=== PATIENT | male | born 1935 | race Caucasian/White ===

== ENCOUNTER 2019-02-01 18:50 | Observation (INO) ==
[2019-02-01 20:09] LABS: BASO# 0.03 X1000 (0.0-0.2); BASO% 0.3 % (0.0-0.8); EOS# 0.01 X1000 (0.0-0.7); EOS% 0.1 % (0.0-10.0); HEMATOCRIT 33.6 % (42.0-52.0); HEMOGLOBIN 11.3 g/dL (14.0-18.0); IMM GRAN# 0.02 X1000 (0.0-0.04); IMM GRAN% 0.2 % (0.0-0.5); LYMPH# 1.19 X1000 (1.2-3.4); LYMPH% 13.7 % (20.5-51.1); MCH 30.5 PG (27-31); MCHC 33.6 g/dL (33-37); MCV 90.6 FL (81-99); MONO# 0.86 X1000 (0.11-0.59); MONO% 9.9 % (1.7-9.3); MPV 8.6 FL (7.4-10.4); NEUT# 6.59 X1000 (1.4-6.5); NEUT% 75.8 % (42.2-75.2); PLT 337 X1000 (130-400); RBC 3.71 XMIL (4.7-6.1); RDW 11.9 % (11.5-14.5)
--- NOTE | 2019-02-01 20:21 | PROVIDER DOCUMENTATION ---
HPI-General Adult - General Chief Complaint: Return/Recheck Stated Complaint: LOW BLOOD SUGAR Time Seen by Provider: 02/01/19 20:15 Source: patient Allergies/Adverse Reactions: Patient Allergies Allergy/AdvReac Type Severity Reaction Status Date / Time No Known Allergies Allergy Verified 01/30/19 16:24 - History of Present Illness -Gen Adult Nature of Presenting Problems: PER FAMILY: 83 YOM PRESENTS WITH GENERALIZED WEAKNESS THAT HAS NOT IMPROVED SIN CE BEING SEEN ON MONDAY FOR HYPOGLYCEMIA. THE SON/ REPORT SOME SLURRED SPEECH ON MONDAY AND "MAYBE AGAIN THIS MORNING" THE PATIENT HAD A FALL THIS AM BUT WAS ASSISTED TO THE GROUND BY HIS . SON REPORTS THE PATIENT IS NOT EATING OR DRINKING WELL AT HOME. THE PATIENT HOWEVER DENIES ALL COMPLAINTS EXCEPT GENERALIZED WEAKNESS. Review of Systems - Adult - REVIEW OF SYSTEMS - ADULT Constitutional: reports: pierre. denies: no symptoms reported, see HPI, chills, fever, night sweats, weight gain, weight loss, other Eyes: reports: no symptoms reported. denies: see HPI, discharge, dry eyes, decr eased vision, blurred vision, double vision, eye pain, redness, other Ears, Nose, Mouth & Throat: reports: no symptoms reported. denies: see HPI, ear discharge, ear pain, hearing loss, tinnitus, epistaxis, sinus problem, nose pain, loose teeth, mouth/dental pain, mouth swelling, hoarseness, throat pain, throat swelling, other Cardiovascular: reports: no symptoms reported. denies: see HPI, chest pain, edema, heart murmur, irregular heart rate, orthopnea, palpitations, poor circulation, PND, syncope, other Respiratory: reports: no symptoms reported. denies: see HPI, chronic cough, cough, dyspnea on exertion, excessive sputum production, hemoptysis, pleurisy, shortness of breath, wheezing, other Gastrointestinal: reports: poor appetite. denies: no symptoms reported, see HPI, abdominal pain, hematemesis, constipation, diarrhea, difficulty swallowing, frequent heartburn, nausea, rectal bleeding, vomiting, other Genitourinary: reports: no symptoms reported. denies: see HPI, dysuria, discharge, frequency, flank pain, frequent UTI's, hematuria, hesitency, incont inence, urinary retention, urgency, other Musculoskeletal: reports: no symptoms reported. denies: see HPI, bone pain, back pain, frequent leg cramps, joint pain, joint swelling, muscle aches, muscle weakness, neck pain, other Integumentary: reports: no symptoms reported. denies: see HPI, hives, hair loss, itching, mole changes, nail changes, rash, skin sores/ulcer, skin thickening, other Neurological: reports: no symptoms reported. denies: see HPI, ataxia, dizziness/vertigo, headache/migraines, loss of balance, numbness, paresthesia, seizure, slurred speech, syncope, tremors, other Psychiatric: reports: no symptoms reported. denies: see HPI, anxiety, anti- depressant use, alcohol/drug dependence, depression, emotional problems, insomnia, panic attacks, suicidal thoughts, other Endocrine: reports: no symptoms reported. denies: see HPI, change in skin pigment, excessive sweating, goiter, cold intolerance, heat intolerance, increased hunger, increased thirst, polyuria, other Hematologic/Lymphatic: reports: no symptoms reported. denies: see HPI, blood clots, easy bruising, low blood count, lymphedema, prolonged bleeding, swollen lymph nodes, transfusions, other Allergic/Immunologic: reports: no symptoms reported. denies: see HPI, allergic reactions, allergic rhinitis, asthma, eczema, food allergy, frequent infections, hay fever, hives, positive PPD, urticaria, other Past History - Adult - PAST MEDICAL HISTORY-ADULT Review of Records: reports: Old Records Reviewed, Nursing Assessment Review Physical Exam-General - PHYSICAL EXAM-ADULT Initial Vital Signs Reviewed: Yes - CONSTITUTIONAL General Appearance: appears well, alert, no apparent distress - EYES Eyes: PERRL/EOMI - HEAD, EARS, NOSE, MOUTH & THROAT HENMT: normocephalic/atraumatic, moist mucous membranes, normal ENT inspection - NECK Neck: non-tender, full range of motion, supple - RESPIRATORY Respiratory: chest non-tender, lungs clear - CARDIOVASCULAR Cardiovascular: normal peripheral pulses, regular rate, rhythm - GASTROINTESTINAL (ABDOMEN) Abdominal Exam: normal bowel sounds, non tender, soft - LYMPHATIC Lymphatic: no adenopathy - MUSCULOSKELETAL Back Exam: normal inspection, no CVA tenderness, no vertebral tenderness Extremity: normal range of motion, non-tender. negative: normal gait - SKIN Integumentary: normal color, normal turgor, warm/dry - NEUROLOGIC Neurologic: grossly normal - PSYCHIATRIC Psych/Mental Status: normal mood/affect, oriented x 3 Progress - PLAN OF CARE/RESULTS Progress/Plan/Lab Results: Vital Signs - 8 hr 02/01/19 19:06 Temperature 98 F Pulse Rate 97 H Respiratory Rate 18 Blood Pressure 177/99 O2 Sat by Pulse Oximetry 94 L Laboratory Results - last 24 hr 02/01/19 19:54 WBC 8.70 RBC 3.71 L Hgb 11.3 L Hct 33.6 L MCV 90.6 MCH 30.5 MCHC 33.6 RDW Std Deviation 11.9 Plt Count 337 MPV 8.6 Immature Gran % (Auto) 0.2 Neut % (Auto) 75.8 H Lymph % (Auto) 13.7 L [place] % (Auto) 9.9 H Eos % (Auto) 0.1 Baso % (Auto) 0.3 Immature Gran # (Auto) 0.02 Neut # (Auto) 6.59 H Lymph # (Auto) 1.19 L [place] # (Auto) 0.86 H Eos # (Auto) 0.01 Baso # (Auto) 0.03 Orders Category Date Time Status FSBS [Finger Stick Blood Sugar (ED)] DIRECTED Care 02/01/19 19:11 Active CBC WITH DIFF [HEME] Stat Lab 02/01/19 19:54 Completed COMPREHENSIVE METABOLIC PANEL [CHEM] Stat Lab 02/01/19 20:[address] W/POSS RFLX CULT [URINALYSIS] Stat Lab 02/01/19 19:12 Un collected 2300: DISCUSSED LABS WITH FAMILY, IS CONCERNED REGARDING WEAKNESS AND POOR APPETITE THE PATIENT IS HAVING DIFFICULTY AMBULATING 0012: PT IS NOT SAFE FOR DISCHARGE DUE TO DIFFICULTY WITH ADL'S, FALLS AT HOME GENERALIZED WEAKNESS. DR MICHELLE IS Result Diagrams: 02/01/19 19:54 02/01/19 19:54 - CT/MRI 1 CT Study: Head Impression: Abnormal (1. MODERATE ATROPHY AND PERIVENTRICULAR WHITE MATTER SMALL VESSEL CHANGES 2. NO ACUTE FINDINGS 3. 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) - CONSULTS/PCP/HOSPITALIST Notification #1 *Consult/PCP/Hospitalist*: dr sawant Time Discussed: 00:12 Consult Disposition: Admit Departure - Departure Date of Disposition Decision: 02/02/19 Time of Disposition Decision: 00:23 DIAGNOSIS: Weakness, Dehydration, Hyponatremia Disposition: HOME 01 Certified Medical Emergency: Emergent Condition: Stable Referrals and Follow-Ups: Robert Candelario MD [Primary Care Provider] - - Critical Care Note This patient required my direct & personal management of CC.: No Attestation - Physician/ GERSON Attestation Patient care was provided by Advanced Practice Provider:: Yes Advanced Practice Provider:: [facility] Advanced Practice Provider documentation review:: The Mid-level provider documentation, treatment plan and medical decision making was reviewed by the physician who agrees with all treatment and medical decision making by the MLP. The physician spent face to face time with patient:: Yes Advanced Practice Provider documentation review:: Supervising physician onsite and consulted in the evaluation and care of this patient. The physician did have a face to face encounter with the patient.
[2019-02-01] MEDS ORDERED: NS 500 ML IV ONE (20:31)
[2019-02-01 20:49] LABS: ALBUMIN 3.4 g/dL (3.5-5.0); CALCIUM 8.6 mg/dL (8.8-10.2); CREATININE 1.4 mg/dL (0.7-1.2); POTASSIUM 4.7 mmol/L (3.5-5.1); TOTAL BILIRUBIN 0.6 mg/dL (0.20-1.00); TOTAL PROTEIN 7.5 g/dL (6.3-8.3)
[2019-02-01 22:43] LABS: BILIRUBIN URINE NEGATIVE (NEGATIVE); BLOOD URINE 1+ (NEGATIVE); GLUCOSE URINE NEGATIVE (NEGATIVE); KETONE URINE NEGATIVE (NEGATIVE); LEUKOCYTES URINE TRACE (NEGATIVE); NITRITE URINE NEGATIVE (NEGATIVE); PH URINE 6.5; PROTEIN URINE TRACE mg/dL (NEGATIVE); SP GRAVITY URINE 1.015; UROBILINOGEN URINE NORMAL
[2019-02-01 22:44] LABS: CLARITY CLEAR (CLEAR); COLOR YELLOW; URINE BACTERIA NEGATIVE /HFP; URINE EPITHELIAL CELLS <10 /HPF (<10); URINE RBC <10 /HPF (<10); URINE SOURCE CATH; URINE WBC <10 /HPF (<10)
[2019-02-02] MEDS ORDERED: NS 1,000 ML IV ONE (00:17)
[2019-02-02] MEDS ORDERED: HUMULIN R (PARKWAY) SUBQ ONE (02:36)
--- NOTE | 2019-02-02 08:05 | Diag Imaging Result Doc PS360 ---
EXAM: CT HEAD W/O CONTRAST 02/01/2019 HISTORY: WEAKNESS TECHNIQUE: This exam was performed using automated exposure control, adjustment of mA or kV according to patient size, and/or use of iterative reconstruction technique. COMMENT: There are no previous studies available for comparison. There are small punctate calcifications present in the cortex of the left parietal convexity. There is extensive periventricular white matter lucency particularly around the frontal horns and the atria of the lateral ventricles. There is a 6 mm lacune in the left thalamus. There is no evidence of mass effect, bleed, or abnormal extra-axial fluid collection. There is at least one small calcification in the basal ganglia on the right. The visualized paranasal sinuses are clear. The calvarium is intact. IMPRESSION: Chronic ischemic microvascular changes. No evidence of acute disease. Electronically signed by Juan R Adair 02/02/2019 8:03 AM
[2019-02-02] MEDS ORDERED: TYLENOL PO PRN (09:23)
[2019-02-02] MEDS ORDERED: ZOFRAN IV PRN (09:23)
[2019-02-02] MEDS: SYNTHROID PO SCH (12:21)
[2019-02-02 14:03] LABS: HEMOGLOBIN A1C 6.9 % (4.8-6.0)
[2019-02-02 15:04] LABS: AGAP 8; ALBUMIN 2.8 g/dL (3.5-5.0); ALKALINE PHOSPHATASE 75 U/L (32-122); BUN 25 mg/dL (8-22); CHLORIDE 99 mmol/L (98-107); COSMO 273; CREATININE 1.1 mg/dL (0.7-1.2); ESTIMATED GFR > 60; GLUCOSE 239 mg/dL (70-104); GOT 16 U/L (10-34); GPT 11 U/L (10-44); POTASSIUM 4.5 mmol/L (3.5-5.1); SODIUM 130 mmol/L (136-145); TCO2 23 mmol/L (25-35); TOTAL PROTEIN 6.5 g/dL (6.3-8.3)
--- NOTE | 2019-02-02 15:28 | HISTORY AND PHYSICAL ---
PRIMARY CARE PHYSICIAN: Dr. Robert Candelario. CHIEF COMPLAINT: Generalized weakness. HISTORY OF PRESENT ILLNESS: This is an 83-year-old gentleman with a history of diabetes mellitus, hyperlipidemia and hypertension. He presents to the emergency room complaining of generalized weakness with very little appetite. Mr. Amato was seen in the emergency room on January 30 for hypoglycemia that had been present for about 24 hours. On arrival to the emergency room, at that time his blood sugar was 41. He had currently been on 2000 mg of metformin and glimepiride 4 mg. He was evaluated in the emergency room, told to stop his glimepiride and decrease his metformin to 1000 mg daily and follow up with Dr. Candelario. The family state that during the last 48 hours he has complained of just being weak. He has had very little p.o. intake, food or liquid. The patient states he just does not want it. His blood sugars are in the 204 to 215 range. He is noted to be hyponatremic with a sodium of 128. Of note, he is on hydrochlorothiazide. PAST MEDICAL HISTORY: Hypertension, diabetes mellitus, hyperlipidemia. SOCIAL HISTORY: He lives with his . He denies alcohol, tobacco, or illicit drug use. ALLERGIES: No known drug allergies. HOME MEDICATIONS: A list will be obtained by the nursing staff and once verified, we will review and restart as appropriate. REVIEW OF SYSTEMS: According to the patient, his only complaint is just generalized weakness. The family state he has had no specific complaints other than this. PHYSICAL EXAMINATION: GENERAL: This is an 83-year-old gentleman who is sitting up in the bed in no distress. VITAL SIGNS: Blood pressure is 105/60 with a heart rate of 73, respirations 18, temperature 97.6 degrees oral with room air saturations 97-98%. HEENT: Head is normocephalic, atraumatic. Mucous membranes are moist. NECK: Supple with trachea midline. CARDIOVASCULAR: Regular rate and rhythm S1 and S2 appreciated. EXTREMITIES: He has no lower extremity edema. Calves are nontender bilateral with peripheral pulses palpable x4 extremities. PULMONARY: Breath sounds are clear with no increased work of breathing noted. GASTROINTESTINAL: Abdomen is soft, nontender, nondistended with bowel sounds in all 4 quadrants. GENITOURINARY: He has no CVA or suprapubic tenderness. NEUROLOGIC: He is alert and oriented x3. He is hard of hearing. LABS: WBC is 8.7 with a hemoglobin of 11.3, hematocrit 33.6, and platelets 337,000. Sodium 128, potassium 4.7, BUN 28, creatinine 1.4 with a glucose of 211. Urinalysis reveals 1+ blood, otherwise negative with less than 10 microscopic red blood cells. Urine culture is pending. CT of the head revealed chronic ischemic microvascular changes. No evidence of acute disease. ASSESSMENT AND PLAN: 1. Hyponatremia. 2. Generalized weakness. 3. Dehydration. 4. Diabetes mellitus with recent episodes of hypoglycemia. 5. Hypertension. 6. Acute kidney injury. PLAN: The patient has been admitted to the medical-surgical floor. We will place him on telemetry. We will give a diabetic diet with Glucerna supplements. Dietitian has been consulted. We will continue with neuro checks, with pattern blood glucose and sliding scale insulin. We will hold any oral antidiabetic medications at present. We will check hemoglobin A1c. Check a TSH. Repeat a CBC, CMP, magnesium in the morning. We will continue his Plavix, his Synthroid and Flomax. We will hold hydrochlorothiazide and telmisartan due to his renal function. He was given a L bolus in the emergency room followed by another L at 75 an hour. We will recheck a CMP. We are going to continue gentle hydration. We will consult physical therapy. Further treatments pending hospital course. Dictated by AUGUSTINA Henson for Ramsey Gonzalez MD cc: AUGUSTINA Henson MD [facility]
[2019-02-02] MEDS: NS 1,000 ML IV SCH (16:12)
[2019-02-02] MEDS: HUMALOG (PARKWAY) SUBQ SCH ×2 (16:30→16:33)
[2019-02-02] MEDS ORDERED: FLOMAX PO SCH (17:00)
[2019-02-02] MEDS ORDERED: ZOCOR PO SCH (21:00)
--- NOTE | 2019-02-02 22:04 | HISTORY AND PHYSICAL ---
ADDENDUM: HISTORY OF PRESENT ILLNESS: Patient seen and examined by myself, full note dictated by nurse practitioner. Patient presented to the hospital with generalized weakness, says his blood sugars have been low. We are going to admit him to hospital. For now we are going hold his blood sugar medications, place him on sliding scale insulin, pattern Accu-Cheks and will follow. cc: Ramsey Gonzalez MD
[2019-02-03] MEDS: HUMALOG (PARKWAY) SUBQ SCH ×3 (03:37→13:09)
[2019-02-03 06:12] LABS: HEMATOCRIT 30.2 % (42.0-52.0); HEMOGLOBIN 9.8 g/dL (14.0-18.0); MCH 29.6 PG (27-31); MCHC 32.5 g/dL (33-37); MCV 91.2 FL (81-99); MPV 8.7 FL (7.4-10.4); RBC 3.31 XMIL (4.7-6.1); RDW 11.6 % (11.5-14.5); WBC 6.48 X1000 (4.8-10.8)
[2019-02-03] MEDS: SYNTHROID PO SCH (06:12)
[2019-02-03] MEDS: NS 1,000 ML IV SCH (06:14)
[2019-02-03 06:47] LABS: AGAP 10; ALKALINE PHOSPHATASE 86 U/L (32-122); BUN 22 mg/dL (8-22); CALCIUM 8.2 mg/dL (8.8-10.2); CHLORIDE 102 mmol/L (98-107); COSMO 274; CREATININE 1.1 mg/dL (0.7-1.2); ESTIMATED GFR > 60; GLUCOSE 110 mg/dL (70-104); GOT 20 U/L (10-34); GPT 12 U/L (10-44); MAGNESIUM 1.7 mg/dL (1.5-2.7); POTASSIUM 3.9 mmol/L (3.5-5.1); SODIUM 135 mmol/L (136-145); TCO2 23 mmol/L (25-35); TOTAL PROTEIN 6.6 g/dL (6.3-8.3)
[2019-02-03] MEDS ORDERED: PLAVIX PO SCH (09:00)
[2019-02-03 14:26] VITALS: BP 141/54
--- NOTE | 2019-02-03 18:14 | DISCHARGE SUMMARY ---
ADMISSION DATE: 02/02/2019 DISCHARGE DATE: 02/03/2019 DIAGNOSES: 1. Generalized weakness. 2. Hyponatremia, resolved. 3. Dehydration, resolved. 4. Diabetes mellitus. 5. Hypertension. 6. Acute kidney injury, resolved after rehydration. DIAGNOSTICS: CT of the head revealed chronic ischemic microvascular changes. No evidence of acute disease. HOSPITAL COURSE: Mr. Amato presented to the emergency room with his family members complaining of generalized weakness. He recently had bouts of hypoglycemia and he was evaluated in the emergency room for this 2 days prior to admission. Medications were adjusted at that time. Blood sugars remained in the 120 to 290 range during the hospitalization while holding his medications. He was evaluated by physical therapy who recommended that he have outpatient physical therapy and a front wheel walker. DISCHARGE VITAL SIGNS: Blood pressure is 141/54, heart rate of 65, respirations 18, temperature 98.2 degrees axillary, with room air saturations 99. DISCHARGE PHYSICAL EXAMINATION: Cardiovascular: Regular rate and rhythm. S1 and S2 appreciated. Pulmonary: Breath sounds are clear. No increased work of breathing noted. Gastrointestinal: Abdomen is soft, nontender, nondistended. Bowel sounds in all 4 quadrants. Neurologic: He is alert and oriented x3. DISCHARGE MEDICATIONS: 1. Flomax 0.4 mg p.o. daily. 2. Metformin 500 mg p.o. q.i.d. 3. Levothyroxine 75 mcg p.o. daily. 4. Plavix 75 mcg p.o. daily. 5. Simvastatin 40 mg p.o. daily. 6. Metoprolol 25 mg p.o. daily. He has been instructed to continue to hold glimepiride until evaluated by his primary care physician FOLLOW UP: He needs to call Dr. Candelario's office in the morning to discuss events over the weekend, schedule a follow-up appointment, also for assistance if needed with obtaining a front wheel walker and outpatient physical therapy. They have been instructed to return to the ER or call to be seen sooner for any syncope, dizziness, chest pain, palpitations, any shortness of breath, cough, fever, chills, temperature greater than 101, any nausea, vomiting, diarrhea, constipation, black or bloody vomitus or stools, any hematuria, dysuria, frequency, urgency, or for any questions or concerns that they may. He is being discharged home in stable condition with family members. TIME SPENT: This is a greater than 30 minute discharge. Dictated by AUGUSTINA Henson for Ramsey Gonzalez MD cc: AUGUSTINA Henson MD [facility]
--- NOTE | 2019-02-04 05:24 | DISCHARGE SUMMARY ---
ADMISSION DATE: 02/02/2019 DISCHARGE DATE: 02/03/2019 DISCHARGE DIAGNOSES: 1. Hyperglycemia. 2. Generalized weakness. 3. Diabetes. 4. Hypertension. 5. Hyperlipidemia. 6. Hyponatremia, resolved. CONSULTATIONS: None. PROCEDURES: None. BRIEF HOSPITAL COURSE: The patient is an 83-year-old male who presented to the hospital with generalized weakness and adult failure to thrive. He was noted to have hypoglycemic episodes. He was on glipizide and metformin at home but has not been eating very well, per the family, but has continued to take medications. He was admitted to the hospital. His diabetic medications were held. He was given IV fluids. Thankfully, on discharge he is awake and alert. He is in no distress. Overall, he notes that he is feeling much better. DISPOSITION: Patient will be discharged home as he is able to ambulate effectively at his baseline. Discussed with him to leave off glipizide for the current time. If he is starting to eat, we will add back his Glucophage. He will follow up outpatient with primary care in 1 to 2 weeks. Greater than 30 minutes was spent in total care. cc: Ramsey Gonzalez MD
== END 2019-02-03 17:34 | disposition home or self-care (01) ==
LOC: P.ED 18:50 → P.MEDSURG 18:50
PROVIDERS: ATTEND Family Medicine

== ENCOUNTER 2019-04-27 12:03 | Inpatient (IN) ==
--- NOTE | 2019-04-27 12:23 | Diag Imaging Result Doc PS360 ---
EXAM: CT HEAD/C-SPINE W/O CONTRAST 04/27/2019 HISTORY: fall 6 days ago ams TECHNIQUE: This exam was performed using automated exposure control, adjustment of mA or kV according to patient size, and/or use of iterative reconstruction technique. COMMENT: There are calcifications in the right vertebral artery and both internal carotid arteries. There is mild generalized cerebral atrophy. There is extensive patchy ill-defined lucency in the white matter both hemispheres particularly in the periatrial regions. No evidence of mass effect, bleed, or abnormal extra-axial fluid collection is present. The calvarium is intact. The visualized paranasal sinuses are clear. There is some fluid in the left mastoid air cells. Cervical spine: There are severe degenerative changes in the anterior atlantoaxial joint. There is ankylosis of C2 and C3. There is partial ankylosis of C3 and C4. The facets appear to be aligned. There is severe hypertrophic facet change present at the C4-5 and C5-C6 levels on the right side. There is severe hypertrophic change on the left at C7-T1. No evidence of acute fracture or subluxation is present. There is no prevertebral soft tissue swelling. IMPRESSION: No evidence of acute intracranial disease. Chronic microvascular white matter disease and atrophy. Degenerative disc and facet changes in the cervical spine without evidence of acute bony abnormality. Electronically signed by Juan R Adair 04/27/2019 12:21 PM
--- NOTE | 2019-04-27 13:01 | Diag Imaging Result Doc PS360 ---
EXAM: CHEST-PORTABLE 04/27/2019 HISTORY: cough TECHNIQUE: AP portable at 1303 COMMENT: There may be COPD. There is no evidence of acute cardiac or pulmonary disease. There are no previous studies. IMPRESSION: COPD. Electronically signed by Juan R Adair 04/27/2019 12:59 PM
[2019-04-27 13:31] LABS: BASO# 0.02 X1000 (0.0-0.2); BASO% 0.3 % (0.0-0.8); EOS# 0.06 X1000 (0.0-0.7); EOS% 0.8 % (0.0-10.0); HEMATOCRIT 34.8 % (42.0-52.0); HEMOGLOBIN 11.5 g/dL (14.0-18.0); IMM GRAN# 0.01 X1000 (0.0-0.04); IMM GRAN% 0.1 % (0.0-0.5); LYMPH# 0.99 X1000 (1.2-3.4); LYMPH% 13.6 % (20.5-51.1); MCH 29.6 PG (27-31); MCV 89.7 FL (81-99); MONO# 0.47 X1000 (0.11-0.59); MONO% 6.5 % (1.7-9.3); MPV 9.1 FL (7.4-10.4); NEUT# 5.72 X1000 (1.4-6.5); NEUT% 78.7 % (42.2-75.2); PLT 331 X1000 (130-400); RBC 3.88 XMIL (4.7-6.1); RDW 12.3 % (11.5-14.5); WBC 7.27 X1000 (4.8-10.8)
[2019-04-27 13:46] LABS: ALBUMIN 3.9 g/dL (3.5-5.0); CALCIUM 9.4 mg/dL (8.8-10.2); CREATININE 1.2 mg/dL (0.7-1.2); POTASSIUM 4.9 mmol/L (3.5-5.1); TOTAL BILIRUBIN 1.1 mg/dL (0.20-1.00); TOTAL PROTEIN 7.3 g/dL (6.3-8.3)
[2019-04-27] MEDS ORDERED: NS 1,000 ML IV ONE (14:02)
[2019-04-27 14:06] LABS: CK INDEX 1.1 (0.0-2.5); CK-MB 17.59 ng/mL (0.0-5.0)
--- NOTE | 2019-04-27 14:27 | PROVIDER DOCUMENTATION ---
This chart was entered by Todd Raymond Scribe, acting as scribe for Kyle Mondragon MD. 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) Allergies/Adverse Reactions: Patient Allergies Allergy/AdvReac Type Severity Reaction Status Date / Time No Known Allergies Allergy Verified 04/27/19 13:15 Home Medications: Home Medication List Medication Instructions Recorded Confirmed Last Taken Type Clopidogrel [Plavix] 75 mg PO DAILY 04/27/19 04/27/19 Unknown History Levothyroxine [Synthroid] 75 microgm PO DAILY 04/27/19 04/27/19 Unknown History Metformin [Glucophage] 500 mg PO TID 04/27/19 04/27/19 Unknown History Metoprolol [Lopressor] 25 mg PO DAILY 04/27/19 04/27/19 Unknown History SIMVAstatin [Zocor] 40 mg PO QHS 04/27/19 04/27/19 Unknown History Tamsulosin [Flomax] 0.4 mg PO DAILY 04/27/19 04/27/19 Unknown History Telmisartan/Hydrochlorothiazid 1 tab PO DAILY 04/27/19 04/27/19 Unknown History [Telmisartan-Hctz 80-12.5 mg Tb] - History of Present Illness-Head Injury Nature of Presenting Problem: 84 yom presents to the ed [facility] EMS with fall that happened 6 days ago. EMS states pt fell 6 days ago on metal toolbox and fire extinguisher. EMS also states went in the bathroom to pick him up said"wasn't feeling good, then that was it" to talk, states said hes been acting "funny" past 48 hours. pt hx of type 2 DM, hypertension, hx of bypass. pt wears hearing-aids Head Injury Location: reports: other (ems states falling on head not sure what part) Severity: reports: mild Onset/Duration: reports: 2 days ago ( stated to ems "acting weird last 48 hours"), 6 days ago (fell 6 days ago) Timing: reports: still present Method of Injury: reports: fell Any recent trauma/injury?: reports: to head (ems states falling on head 6 days a go) Loss of Consciousness: unsure Injury Associated Symptoms: reports: shortness of breath (pt states slight SOB) Locality of Occurance: Home Similar Symptoms Previously?: No Recently seen or treated by another doctor?: No Review of Systems - Adult - REVIEW OF SYSTEMS - ADULT Constitutional: reports: no symptoms reported Eyes: reports: no symptoms reported Ears, Nose, Mouth & Throat: reports: no symptoms reported Cardiovascular: reports: no symptoms reported Respiratory: reports: no symptoms reported Gastrointestinal: reports: no symptoms reported Genitourinary: reports: no symptoms reported Musculoskeletal: reports: no symptoms reported Integumentary: reports: no symptoms reported Neurological: reports: no symptoms reported Psychiatric: reports: no symptoms reported Endocrine: reports: no symptoms reported Hematologic/Lymphatic: reports: no symptoms reported Allergic/Immunologic: reports: no symptoms reported All Other Systems: Reviewed and Negative Past History - Adult - PAST MEDICAL HISTORY-ADULT Review of Records: reports: Old Records Reviewed, Nursing Assessment Review, Medications Reviewed, Social history reviewed & non-contributory. Major Childhood Illnesses: reports: denies history Cardiovascular: reports: denies history Respiratory: reports: denies history Gastrointestinal: reports: denies history Obstetrical/Gynecological: reports: denies history Genitourinary: reports: denies history Musculoskeletal: reports: denies history Neurological: reports: denies history Endocrine/Immune: reports: denies history, Diabetes Diabetes Type: Type 2 Other Conditions: reports: denies history - PRIOR SURGERIES/PROCEDURES Surgical/Procedure History: reports: other (ems states bypass stated by ) - IMMUNIZATION STATUS Childhood Immunizations: See Nurse Assessment Flu Vaccine: See Nurse Assessment - FAMILY HISTORY Family History: reviewed, not pertinent - SOCIAL HISTORY Living Situation: family Physical Exam- Neurological - Physical Exam-Neuro Initial Vital Signs Reviewed: Yes General Appearance: alert, thin, slow to respond (pt wears hearing aids) HENMT: moist mucous membranes Head Injury: no evidence of injury Neck: non-tender, full range of motion Respiratory: chest non-tender, lungs clear, normal breath sounds Cardiovascular: normal peripheral pulses, regular rate, rhythm Abdominal Exam: normal bowel sounds, non tender, soft Lymphatic: no adenopathy Extremity: normal range of motion, non-tender, normal gait media consultant Exam: abnormal speech (pt wears hearing aids) Coordination/Gait: normal gait Motor/Sensory: pronator drift (R) (slight drift) Neurologic: grossly normal Integumentary: normal color, normal turgor, warm/dry Psych/Mental Status: disheveled (slightly disheveled on exam, wears hearing aids had to speak into ear) - Glascow Coma Scale Best Eye Response: (3) open to voice Best Verbal Response: (4) confused conversation Best Motor Response: (6) obeys commands Total Glascow Score: 13 Progress - PLAN OF CARE/RESULTS Progress/Plan/Lab Results: Vital Signs - 8 hr 04/27/19 12:18 Temperature 97.7 F Pulse Rate 83 Respiratory Rate 16 Blood Pressure 149/084 O2 Sat by Pulse Oximetry 95 Laboratory Results - last 24 hr 04/27/19 04/27/19 04/27/19 13:05 13:05 13:05 WBC 7.27 RBC 3.88 L Hgb 11.5 L Hct 34.8 L MCV 89.7 MCH 29.6 MCHC 33.0 RDW Std Deviation 12.3 Plt Count 331 MPV 9.1 Immature Gran % (Auto) 0.1 Neut % (Auto) 78.7 H Lymph % (Auto) 13.6 L Calloway % (Auto) 6.5 Eos % (Auto) 0.8 Baso % (Auto) 0.3 Immature Gran # (Auto) 0.01 Neut # (Auto) 5.72 Lymph # (Auto) 0.99 L Calloway # (Auto) 0.47 Eos # (Auto) 0.06 Baso # (Auto) 0.02 Sodium 137 Potassium 4.9 Chloride 100 Carbon Dioxide 21 L Anion Gap 16 BUN 46 H Creatinine 1.2 Estimated GFR/1.73 m2 58 BUN/Creatinine Ratio 38 Glucose 207 H Calculated Osmolality 292 Calcium 9.4 Total Bilirubin 1.10 H AST 62 H ALT 26 Alkaline Phosphatase 84 Creatine Kinase 1532 H Creatine Kinase Index 1.1 CK-MB (CK-2) 17.59 H Troponin T < 0.010 Total Protein 7.3 Albumin 3.9 Globulin 3.0 Albumin/Globulin Ratio 1.0 Orders Category Date Time Status CHEST-PORTABLE [RAD] Stat Exams 04/27/19 12:[address] HEAD/C-SPINE W/O CONTRAST [CT] Stat Exams 04/27/19 11:55 Completed CBC WITH ELECTRONIC DIFF [HEME] Stat Lab 04/27/19 13:05 Completed CK PROFILE [SP CHEM] Stat Lab 04/27/19 13:05 Completed COMPREHENSIVE METABOLIC PANEL [CHEM] Stat Lab 04/27/19 13:05 Completed TROPONIN T Stat Lab 04/27/19 13:[address] W/POSS RFLX CULT [URINALYSIS] Stat Lab 04/27/19 12:24 Uncollected URINE DRUG SCREEN PL Stat Lab 04/27/19 12:26 Uncollected 0.9% Sodium Chloride Inj [Ns] 1,000 ml Med 04/27/19 14:02 Active IV 125 mls/hr Result Diagrams: 04/27/19 13:05 04/27/19 13:05 - XRAY 1 XRAY Study: Chest Impression: Abnormal (copd) - CT/MRI 1 CT Study: Cervical Spine, Head Impression: See EMR Report (EXAM: CT HEAD/C-SPINE W/O CONTRAST 04/27/2019 HISTORY: fall 6 days ago ams TECHNIQUE: This exam was performed using automated exposure control, adjustment of mA or kV according to patient size, and/or use of iterative reconstruction technique. COMMENT: There are calcifications in the right vertebral artery and both internal carotid arteries. There is mild generalized cerebral atrophy. There is extensive patchy ill- defined lucency in the white matter both hemispheres particularly in the periatrial regions. No evidence of mass effect, bleed, or abnormal extra-axial fluid collection is present. The calvarium is intact. The visualized paranasal sinuses are clear. There is some fluid in the left mastoid air cells. Cervical spine: There are severe degenerative changes in the anterior atlantoaxial joint. There is ankylosis of C2 and C3. There is partial ankylosis of C3 and C4. The facets appear to be aligned. There is severe hypertrophic facet change present at the C4-5 and C5-C6 levels on the right side. There is severe hypertrophic change on the left at C7-T1. No evidence of acute fracture or subluxation is present. There is no prevertebral soft tissue swelling. IMPRESSION: No evidence of acute intracranial disease. Chronic microvascular white matter disease and atrophy. Degenerative disc and facet changes in the cervical spine without evidence of acute bony abnormality. Electronically signed by Juan R Adair 04/27/2019 12:21 PM 04/27/19 1221 Interpreting Physician: Juan R Adair MD Dictated Date/Time: 04/27/19 1210 cc: Kyle Mondragon MD;) - CONSULTS/PCP/HOSPITALIST Notification #1 *Consult/PCP/Hospitalist*: phone consult [place] Time Discussed: 14:22 (pts condition ) Departure - Departure Date of Disposition Decision: 04/27/19 Time of Disposition Decision: 14:24 DIAGNOSIS: Dehydration, Dementia, Elevated myoglobin level Disposition: ADMITTED INPATIENT 09 Certified Medical Emergency: Emergent Condition: Stable Referrals and Follow-Ups: Robert Candelario MD [Primary Care Provider] - - Critical Care Note This patient required my direct & personal management of CC.: No Attestation - Physician/ GERSON Attestation Patient care was provided by Advanced Practice Provider:: No The physician spent face to face time with patient:: Yes Advanced Practice Provider documentation review:: Supervising physician onsite and consulted in the evaluation and care of this patient. The physician did have a face to face encounter with the patient. This chart was documented by the indicated scribe, (Todd Raymond, Sera) and accurately reflects the services I performed and decisions made by me, Kyle Mondragon MD, as attested by the provider's signature.
[2019-04-27 15:04] LABS: BILIRUBIN URINE NEGATIVE (NEGATIVE); BLOOD URINE 1+ (NEGATIVE); CLARITY CLEAR (CLEAR); COLOR YELLOW; KETONE URINE NEGATIVE (NEGATIVE); LEUKOCYTES URINE NEGATIVE (NEGATIVE); NITRITE URINE NEGATIVE (NEGATIVE); PROTEIN URINE TRACE mg/dL (NEGATIVE); SP GRAVITY URINE 1.015; UROBILINOGEN URINE NORMAL
[2019-04-27 15:07] LABS: URINE SOURCE CLEAN CATCH
[2019-04-27 15:08] LABS: URINE BACTERIA 1+ /HFP; URINE CAST NONE SEEN /LPF; URINE CRYSTAL NONE SEEN /HPF; URINE EPITHELIAL CELLS >10 /HPF (<10); URINE RBC <10 /HPF (<10); URINE WBC <10 /HPF (<10); URINE YEAST NONE SEEN /HPF
[2019-04-27 15:15] LABS: UR AMPHETAMINES QUAL NONE DETECTED (NONE DETECT); UR BARBITUATES QUAL NONE DETECTED (NONE DETECT); UR BENZODIAZEPIN QUAL NONE DETECTED (NONE DETECT); UR CANNABINOIDS QUAL NONE DETECTED (NONE DETECT); UR COCAINE QUAL NONE DETECTED (NONE DETECT); UR METHADONE QUAL NONE DETECTED (NONE DETECT); UR METHAMPHETAMINE QUAL NONE DETECTED (NONE DETECT); UR OPIATES QUAL NONE DETECTED (NONE DETECT); UR OXYCODONE QUAL NONE DETECTED (NONE DETECT); UR PCP QUAL NONE DETECTED (NONE DETECT); UR PROPOXYPHENE QUAL NONE DETECTED (NONE DETECT); UR TCA QUAL NONE DETECTED (NONE DETECT)
[2019-04-27 15:58] LABS: CALCIUM 9.4 mg/dL (8.8-10.2); CREATININE 1.4 mg/dL (0.7-1.2); POTASSIUM 4.8 mmol/L (3.5-5.1)
[2019-04-27] MEDS: NS 1,000 ML IV SCH ×2 (16:34→21:03)
--- NOTE | 2019-04-27 17:41 | HISTORY AND PHYSICAL ---
CHIEF COMPLAINT: Fall, altered mental status. HISTORY OF PRESENT ILLNESS: This is a 84-year-old gentleman who presented to the emergency room via EMS being called by the patient's . Evidently the patient fell 6 days ago he landed on a metal tool box and a fire extinguisher. He was not evaluated after the fall. EMS reported that the stated "he was acting funny over the past 48 hours" with no further explanation. The patient reports " I just dont feel good" PAST MEDICAL HISTORY: 1. Prostate cancer. 2. CAD. 3. Diabetes mellitus type 2. 4. Hypertension. SOCIAL HISTORY: He denies alcohol, tobacco or illicit drug use. ALLERGIES: No known drug allergies. HOME MEDICATIONS: A list will be obtained by the nursing staff and once verified review and restart as appropriate. REVIEW OF SYSTEMS: Discussed with the patient with pertinent positives stated in the HPI. He denied any syncope or dizziness, any chest pain or palpitations, cough, fever, chills, any shortness of breath, any nausea, vomiting, diarrhea, constipation, black or bloody vomitus or stools, any hematuria, dysuria, frequency, urgency. PHYSICAL EXAMINATION: GENERAL: This is an 84-year-old gentleman who is lying on the stretcher in the emergency room in no distress. VITAL SIGNS: Blood pressure is 149/84 with a heart rate of 83, respirations 18, temperature is 97.7 degrees with room air saturations 94 to 96%. HEENT: Head is normocephalic, atraumatic. Mucous membranes are moist. NECK: Supple with trachea midline. No JVD. CARDIOVASCULAR: Regular rate and rhythm. S1 and S2 appreciated. He has no lower extremity edema. Peripheral pulses are palpable x4 extremities. PULMONARY: Breath sounds are clear. No increased work of breathing noted. Chest rises and falls symmetric respiration. Chest wall is nontender to palpation. GASTROINTESTINAL: Abdomen soft, nontender, nondistended with bowel sounds in all 4 quadrants. GENITOURINARY: No CVA or suprapubic tenderness. NEUROLOGIC: He is alert and oriented x3. SKIN: Warm and dry. LABS: WBC is 7.2 with hemoglobin 11.5, hematocrit 34.8, platelets of 331,000. Sodium is 137, potassium 4.9, BUN 46, creatinine 1.2 with a glucose of 207. CPK is 1532 with a CK-MB of 17.59, troponin less than 0.010. Chest x-ray reveals COPD. CT of the head and cervical spine reveals no evidence of acute intracranial disease, chronic microvascular white matter disease and atrophy with degenerative disk and facet changes in the cervical spine without evidence of acute bony abnormality. ASSESSMENT AND PLAN: 1. Rhabdomyolysis secondary to fall. 2. Diabetes mellitus type 2. 3. Hypertension. 4. History of coronary artery disease. 5. History of prostate cancer. 6. Dehydration. 7. Hypothyroid. PLAN: The patient will be admitted to the medical-surgical floor, placed on telemetry pattern blood glucose with sliding scale insulin. diabetic diet. continue IV hydration, trend troponins and cardiac profile. BMP at 9 o'clock tonight CBC, CMP, and total CK in the morning. identify his home medications and continue as appropriate. TSH. Plan was discussed with Dr. Gonzalez. Further treatments pending hospital course. Dictated by AUGUSTINA Henson for Ramsey Gonzalez MD cc: AUGUSTINA Henson MD [facility]
[2019-04-27] MEDS: HUMALOG (PARKWAY) SUBQ SCH ×2 (18:21→20:57)
--- NOTE | 2019-04-27 18:21 | HISTORY AND PHYSICAL ---
ADDENDUM: Patient seen and examined by myself. Full note dictated and discussed with nurse practitioner. Patient is an 84-year-old male who presented to the emergency department with his , noting that he has been falling. He has had some altered mental status. He did recently start tramadol, which may have contributed to his altered mental status. His CPK is noted to be elevated from his recent fall. We are going to admit him to the hospital, IV fluids, and follow. We are going to use Ativan as needed for his current anger outbursts and anxiety. cc: Ramsey Gonzalez MD
[2019-04-27] MEDS: ATIVAN PO PRN (18:26)
[2019-04-27 19:36] LABS: CALCIUM 9.1 mg/dL (8.8-10.2); CREATININE 1.2 mg/dL (0.7-1.2); POTASSIUM 4.4 mmol/L (3.5-5.1)
[2019-04-27 20:02] LABS: CK INDEX 1.2 (0.0-2.5); CK-MB 28.39 ng/mL (0.0-5.0)
[2019-04-28 01:43] LABS: CK INDEX 1.1 (0.0-2.5); CK-MB 20.39 ng/mL (0.0-5.0)
[2019-04-28 04:01] LABS: BILIRUBIN URINE NEGATIVE (NEGATIVE); BLOOD URINE 1+ (NEGATIVE); COLOR YELLOW; KETONE URINE NEGATIVE (NEGATIVE); LEUKOCYTES URINE NEGATIVE (NEGATIVE); NITRITE URINE NEGATIVE (NEGATIVE); PROTEIN URINE NEGATIVE (NEGATIVE); UROBILINOGEN URINE NORMAL
[2019-04-28 04:02] LABS: CLARITY CLEAR (CLEAR); URINE BACTERIA NEGATIVE /HFP; URINE EPITHELIAL CELLS <10 /HPF (<10); URINE RBC <10 /HPF (<10); URINE SOURCE CATH; URINE WBC <10 /HPF (<10)
[2019-04-28 06:44] LABS: BASO# 0.02 X1000 (0.0-0.2); BASO% 0.3 % (0.0-0.8); EOS# 0.14 X1000 (0.0-0.7); HEMATOCRIT 35.9 % (42.0-52.0); HEMOGLOBIN 11.7 g/dL (14.0-18.0); IMM GRAN# 0.01 X1000 (0.0-0.04); IMM GRAN% 0.1 % (0.0-0.5); LYMPH# 1.22 X1000 (1.2-3.4); LYMPH% 17.4 % (20.5-51.1); MCH 29.3 PG (27-31); MCHC 32.6 g/dL (33-37); MONO# 0.53 X1000 (0.11-0.59); MONO% 7.5 % (1.7-9.3); MPV 9.2 FL (7.4-10.4); NEUT# 5.11 X1000 (1.4-6.5); NEUT% 72.7 % (42.2-75.2); PLT 295 X1000 (130-400); RBC 3.99 XMIL (4.7-6.1); RDW 12.2 % (11.5-14.5); WBC 7.03 X1000 (4.8-10.8)
[2019-04-28 07:12] LABS: AGAP 14; ALBUMIN 3.7 g/dL (3.5-5.0); ALKALINE PHOSPHATASE 86 U/L (32-122); BUN 39 mg/dL (8-22); CALCIUM 9.3 mg/dL (8.8-10.2); CHLORIDE 101 mmol/L (98-107); CK TOTAL 1923 U/L (24-204); COSMO 287; ESTIMATED GFR > 60; GLUCOSE 108 mg/dL (70-104); GOT 88 U/L (10-34); GPT 33 U/L (10-44); POTASSIUM 4.2 mmol/L (3.5-5.1); SODIUM 139 mmol/L (136-145); TCO2 23 mmol/L (25-35); TOTAL PROTEIN 7.5 g/dL (6.3-8.3)
[2019-04-28] MEDS: HUMALOG (PARKWAY) SUBQ SCH ×4 (08:28→21:00)
[2019-04-28] MEDS: HYDROCHLOROTHIAZIDE PO SCH (08:29)
[2019-04-28] MEDS: TOPROL XL PO SCH (08:29)
[2019-04-28] MEDS: FLOMAX PO SCH (08:29)
[2019-04-28] MEDS: ATIVAN PO PRN ×2 (08:30→20:35)
[2019-04-28] MEDS: GLUCOPHAGE PO SCH ×3 (08:31→16:37)
[2019-04-28] MEDS: MICARDIS PO SCH (08:56)
[2019-04-28] MEDS ORDERED: SYNTHROID PO SCH (09:00)
[2019-04-28] MEDS: NS 1,000 ML IV SCH (12:05)
--- NOTE | 2019-04-28 14:13 | PROGRESS NOTE ---
DATE: 04/28/2019 SUBJECTIVE: The patient himself has no questions or concerns. The family does note that he has had frequent episodes of falling and some confusion at home. They think the confusion worsened after tramadol. PHYSICAL: Temperature 98, pulse 69, respiratory rate 18, BP 146/71.General: Patient is awake. He is alert. He is lying in bed. He is in no distress. HEENT: Normocephalic. Neck: Supple. Cardiovascular: Regular rate. Chest: Clear. Abdomen: Soft. Extremities: Moves all extremities. Neurologic: No focal changes. ASSESSMENT: 1. Rhabdomyolysis. CPK still at 1900. 2. Frequent falls. 3. Dementia. After long discussion does appear as though he has been having some dementia type issues at home for quite some time. 4. Known coronary artery disease. 5. History of prostate cancer. 6. Dehydration, appears resolved. 7. Hypothyroidism. PLAN: We will continue patient in the hospital. Continue symptomatic care. Discussed dementia, Aricept, Namenda. Prognosis. We will continue physical therapy. Continue IV fluids. Further orders as needed. cc: Ramsey Gonzalez MD
[2019-04-29] MEDS: NS 1,000 ML IV SCH (01:19)
[2019-04-29] MEDS: ATIVAN PO PRN (01:19)
[2019-04-29] MEDS: HUMALOG (PARKWAY) SUBQ SCH ×4 (06:30→21:32)
[2019-04-29] MEDS ORDERED: ATIVAN PO PRN (06:45)
[2019-04-29] MEDS: SYNTHROID PO SCH ×2 (06:54→08:46)
[2019-04-29 06:55] LABS: HEMOGLOBIN 11.4 g/dL (14.0-18.0); MCH 29.4 PG (27-31); MCHC 32.6 g/dL (33-37); MCV 90.2 FL (81-99); MPV 9.4 FL (7.4-10.4); RBC 3.88 XMIL (4.7-6.1); RDW 12.2 % (11.5-14.5); WBC 8.27 X1000 (4.8-10.8)
[2019-04-29 07:10] LABS: AGAP 11; ALBUMIN 3.5 g/dL (3.5-5.0); ALKALINE PHOSPHATASE 84 U/L (32-122); BUN 29 mg/dL (8-22); CALCIUM 8.9 mg/dL (8.8-10.2); CHLORIDE 101 mmol/L (98-107); COSMO 279; CREATININE 0.9 mg/dL (0.7-1.2); ESTIMATED GFR > 60; GLUCOSE 128 mg/dL (70-104); GOT 67 U/L (10-34); GPT 31 U/L (10-44); MAGNESIUM 1.3 mg/dL (1.5-2.7); POTASSIUM 4.2 mmol/L (3.5-5.1); SODIUM 136 mmol/L (136-145); TCO2 24 mmol/L (25-35); TOTAL PROTEIN 7.2 g/dL (6.3-8.3)
[2019-04-29] MEDS ORDERED: MAGNESIUM SULFATE 2 GM/S.W.I. 2 GM/50 ML IVPB IV ONE (07:42)
[2019-04-29 07:52] LABS: CK INDEX 0.6 (0.0-2.5); CK-MB 5.98 ng/mL (0.0-5.0)
[2019-04-29] MEDS: HYDROCHLOROTHIAZIDE PO SCH (08:45)
[2019-04-29] MEDS: GLUCOPHAGE PO SCH ×3 (08:46→19:34)
[2019-04-29] MEDS: TOPROL XL PO SCH (08:46)
[2019-04-29] MEDS: FLOMAX PO SCH (08:46)
[2019-04-29] MEDS: MICARDIS PO SCH (08:46)
[2019-04-29] MEDS: ARICEPT PO SCH (08:55)
--- NOTE | 2019-04-29 19:09 | PROGRESS NOTE ---
DATE: 04/29/2019 SUBJECTIVE: The patient himself has no complaints. He is easily agitated and confused most of the time. PHYSICAL: Temperature 98, pulse 70, respiratory 18, BP 158/69.General: Patient is awake, currently in no respiratory distress. HEENT: Normocephalic. Neck: Supple. Cardiovascular: Regular rate. Chest: Clear. Abdomen: Soft. Extremities: Moves all extremities. ASSESSMENT: 1. Rhabdomyolysis, improved. CPK is down from 1931 to just over 1000. 2. Diabetes. 3. Hypertension. 4. Dementia. 5. Adult failure to thrive with generalized weakness and frequent falling. PLAN: At this point, the feels though it is best that he transition to rehab as he has been falling very frequently at home, is having difficulty ambulating. Certainly this is a good option. We are going to leave him in the hospital tonight and get physical therapy. Hopefully can transition to rehab tomorrow. cc: Ramsey Gonzalez MD
[2019-04-30] MEDS: HUMALOG (PARKWAY) SUBQ SCH ×2 (06:05→11:30)
[2019-04-30] MEDS: SYNTHROID PO SCH (06:12)
[2019-04-30] MEDS: TOPROL XL PO SCH (08:18)
[2019-04-30] MEDS: HYDROCHLOROTHIAZIDE PO SCH (08:18)
[2019-04-30] MEDS: FLOMAX PO SCH (08:19)
[2019-04-30] MEDS: MICARDIS PO SCH (08:19)
[2019-04-30] MEDS: ARICEPT PO SCH (08:19)
[2019-04-30] MEDS: GLUCOPHAGE PO SCH ×2 (08:19→14:03)
--- NOTE | 2019-04-30 11:36 | DISCHARGE SUMMARY ---
ADMISSION DATE: 04/27/2019 DISCHARGE DATE: 04/30/2019 ADMISSION DIAGNOSES: 1. Rhabdomyolysis secondary to fall. 2. Diabetes mellitus type 2. 3. Hypertension. 4. Coronary artery disease history. 5. Prostate cancer history. 6. Dehydration. 7. Hypothyroidism. DISCHARGE DIAGNOSES: 1. Rhabdomyolysis. 2. Frequent falls. 3. Dementia. 4. Known coronary artery disease. 5. History of prostate cancer. 6. Dehydration resolved. 7. Hypothyroidism. CONSULTATIONS: None. SURGERIES AND PROCEDURES: None. HOSPITAL COURSE: Mr. Gabriel Amato a 89-year-old male presented to the emergency department on 04/27/2019 with altered mental status and a fall. He was brought in by EMS after the called. Apparently, he had a fall 6 days ago and landed on top of a metal tool box and a fire extinguisher. He was never evaluated after the fall. Apparently, over the last 48 hours prior to admission he was having altered mental status. The patient only reported that he just did not feel good. Workup revealed that he had elevated CK's which revealed that he had a traumatic rhabdomyolysis. He was started on IV fluid hydration, and transferred to the floor. For his diabetes, he was on sliding scale insulin and pattern blood glucoses. Mentation improved although he does have a history of dementia, and was continued on his Aricept and Namenda. Physical Therapy was ordered. CK trended down from 2347 on admission to yesterday it was 1037. Blood glucose levels remain stable. After 3 days of evaluation, it was deemed appropriate for him to be discharged to rehab at [facility]. DISCHARGE VITAL SIGNS: Temperature 98.4 degrees, heart rate 80, respiratory rate 18, blood pressure 110/62, and O2 saturation 94% on room air. LABORATORY DATA: All labs are from yesterday. White blood cells 8000, hemoglobin 11, hematocrit 35, platelet count 329,000. Sodium 136, potassium 4.2, BUN 29, creatinine 0.9, glucose 144. Magnesium was 1.3 yesterday. Bilirubins 1. AST 67, ALT 31. Last CK yesterday was 1037. Albumin 3.5. IMAGING: On 04/27/2019, head and cervical spine CT with no evidence of acute intracranial disease. Chronic microvascular white matter disease and atrophy. Degenerative disk and facet changes in the cervical spine without evidence of acute bony abnormality. There was a chest x-ray that showed COPD but nothing acute. Did not have an EKG on the electronic medical records but a telemetry shows a normal sinus rhythm. DISCHARGE DIET: Diabetic. DISCHARGE ACTIVITY: As tolerated with physical therapy. DISCHARGE MEDICATIONS: 1. Simvastatin 40 mg p.o. nightly. 2. Flomax 0.4 mg p.o. daily. 3. Metformin 500 mg p.o. t.i.d. 4. Toprol 25 mg p.o. daily. 5. Plavix 75 mg p.o. daily. 6. Synthroid 75 mg p.o. daily. 7. Telmisartan/hydrochlorothiazide 1 tablet p.o. daily. 8. Aricept 5 mg p.o. daily. 9. Ativan 0.5 mg p.o. every 4 hours p.r.n. PHYSICIAN FOLLOWUP: Robert Candelario MD PRIMARY CARE PROVIDER: If the patient has another fall to seek medical attention for full evaluation. If there are signs of increased lethargy, darkened urine, decreased urine output to have CK's re drawn. We will need to have adequate fluid intake to continue flushing the muscles in intravascular system. Take all medications as prescribed. [facility] Dictated by AUGUSTINA Sauer for Demetrio Wallis MD Addendum: Patient seen and examined by myself. Agree with AUGUSTINA note. It reflects my assessment and plan. Patient is being discharged in stable condition. Will be seen by PCP in a week after discharge from rehab. cc: AUGUSTINA Sauer MD [facility]
[2019-04-30 13:38] VITALS: BP 141/80
== END 2019-04-30 14:55 | DRG 566 ==
LOC: P.ED 12:03 → SUATTDRO 15:14 → P.MEDSURG 15:14 → MERGE 15:14
PROVIDERS: ATTEND Internal Medicine